=== PATIENT | female | born 1955 | race Caucasian/White ===

== ENCOUNTER 2018-01-09 05:51 | Day surgery (SDC) | payer OTHER, SELFPAY ==
[2018-01-01 15:37] VITALS: BP 140/64; PULSE 74; RESP 17; TEMP 36.4; O2SAT 97; BMI 39.9
[2018-01-01 17:16] LABS: Hemoglobin 10.5 g/dl (12.0-15.0); Mean Corp Hgb Conc 31.8 g/gl (32-36); Mean Corpuscular Hgb 26.6 pg (27.0-32.0); Mean Corpuscular Volume 83.8 fL (81-99); Mean Platelet Vol. 9.1 fl (6.2-12.0); Platelet Count 280 K/mm3 (150-450); RBC Distribution Width CV 16.6 % (11.6-14.6); RBC Distribution Width SD 50.9 fl (35.1-43.9); Red Blood Count 3.94 M/mm3 (4.2-5.4); White Blood Count 6.4 K/mm3 (4.4-11.0)
[2018-01-01 17:18] LABS: Scan Indicated on CBC? Y/N NO
[2018-01-01 18:08] LABS: Anion Gap 7 (5-15); BUN 30 mg/dL (7-18); BUN/Creat Ratio 25.9 RATIO (10-20); Calcium,Total 9.5 mg/dL (8.5-10.1); Chloride 104 mmol/L (98-107); Creatinine, Serum 1.16 mg/dL (0.55-1.02); EST Glomerular Filtration Rate 51 mL/min (>60); Est Glom Filt Rate - Afr Amer 61 mL/min (>60); Estimated Creatinine Clearance 43.98 ml/min; Glucose 109 mg/dL (74-106); Potassium 3.9 mmol/L (3.5-5.1); Sodium Level 140 mmol/L (136-145)
[2018-01-09] VITALS (7 sets, daily range): BP systolic 115–137; BP diastolic 55–65; PULSE 66–72; RESP 12–18; TEMP 36.1–36.5; O2SAT 91–98; BMI 39.9
--- NOTE | 2018-01-09 | MASS_PTH ---
PATIENT: TIFFANY DELONG LOC: [facility] [place] U#:[id number] AGE/SX: 62/F ROOM: RE01/09/[address]: Dr. Jared Marrero MD : [id number] BED: DIS: 01/09/2018 SPEC #: [id number] RECD: 01/09/18 08:15 STATUS: MILTON MADSEN #: [id number] ARABELLA: 01/09/18 00:[address]: Jared Marrero DEPT: SURGICAL PATHOLOGY RECD BY: Digna Polanco ENTERED: 01/09/18 10:21 SP TYPE: Mass OTHR DR: Out of Town Doctor Tissues: Nasal septum, NOS Procedures: Frozen Section (charge) Surgery Specimen Level IV Frozen (no charge) HEADER OPERATION: Septoplasty, resection inferior turbinates PRE-OP DIAGNOSIS: Deviated nasal septum, hypertrophy of nasal turbinates TISSUE SUBMITTED: Nasal septum mass sent at 0811 for frozen section FROZEN SECTION DIAGNOSIS Mass, nasal septum, biopsy: Negative for malignancy. Granulation tissue and fibrous tissue. ARCHANA:freya 01/09/18 MICROSCOPIC DIAGNOSIS Mass nasal septum, biopsy: A piece of fibroconnective tissue with granulation tissue reaction and fibrinous exudation. Negative for malignancy. ARCHANA:freya 01/10/18 COMMENT Clinical correlation and appropriate follow up are necessary. MICROSCOPIC DESCRIPTION Slides are reviewed. GROSS DESCRIPTION Received fresh for frozen section diagnosis labeled with the patient's name is a specimen designated mass nasal septum. The specimen consists of a piece of malone soft tissue measuring 0.4 x 0.3 x 0.2 cm. The entire specimen is submitted in for frozen section diagnosis one cassette. / ARCHANA:rg 01/09/18 TC:5 CPT: 26706, 81710
[2018-01-09 06:35] LABS: Bedside Glucose 149 mg/dL (70-110)
[2018-01-09] MEDS: Oxymetazoline 0.05% 1 SPRAY SPRAY.BTL 15 SPRAY (08:15)
[2018-01-09 09:15] LABS: Bedside Glucose 127 mg/dL (70-110)
--- NOTE | 2018-01-09 09:32 | PCM.OP.BLANK ---
Operative Report Operative note on Miguel Valenzuela Operative procedure septoplasty, partial resection of posterior and of inferior turbinate, biopsy with frozen section of the left anterior septal mucosa Preoperative diagnosis severe nasal obstruction, deviated nasal septum, hypertrophy of the inferior turbinates, polypoid changes in the left anterior septal mucosa. Postoperative diagnosis as above Operative procedure septoplasty, partial resection of posterior and of inferior turbinate, biopsy of left anterior septal mucosa with frozen section. Procedure the patient was placed supine on the operating room table and after satisfactory endotracheal general anesthesia had been obtained sterile drapes were applied and the patient draped in the usual sterile manner 1% Xylocaine plain mixed with epinephrine was infiltrated into the mucoperichondrium of the quadrilateral cartilage and the mucoperiosteum of the perpendicular plate of the ethmoid bone. Polypoid changes were noted in the mucosa covering the left anterior septum. A biopsy was obtained and sent for frozen section. A diagnosis of chronic inflammation was returned by the pathologist A left Bud incision was made and the mucoperichondrium elevated from the quadrilateral cartilage and the mucoperiosteum from the perpendicular plate of the ethmoid bone. The ethmoid bone appeared to be dislocated. Was repositioned in the midline. The quadrilateral cartilage was detached from the ethmoid bone and also repositioned in the midline. FloSeal was painted on the medial surface of the mucoperichondrium and the mucoperichondrial replaced. With the 0 degree endoscope and a microdebrider the polypoid changes of the left anterior septum was trimmed. Ponce splint was placed on each side of the nasal septum and anchored to each other with a single suture of 3-0 silk. The procedure was considered terminated and the patient returned to the recovery room in satisfactory condition. Jared Marrero MD
== END 2018-01-09 11:45 | disposition home or self-care (01) ==
LOC: SDC 05:52 → AC 05:53
PROVIDERS: Anesthesiology; Referring Provider Otolaryngology Otolaryngology/Facial Plastic Surgery; Visit Provider Otolaryngology Otolaryngology/Facial Plastic Surgery
PROC: (CPT 30520; principal; 2018-01-09 07:15)
DX: J34.2 Deviated nasal septum (principal); J34.3 Hypertrophy of nasal turbinates; J34.89 Other specified disorders of nose and nasal sinuses; E11.9 Type 2 diabetes mellitus without complications; I10 Essential (primary) hypertension; G47.30 Sleep apnea, unspecified; F41.9 Anxiety disorder, unspecified; E07.9 Disorder of thyroid, unspecified; E78.00 Pure hypercholesterolemia, unspecified; I48.0 Paroxysmal atrial fibrillation; Z87.891 Personal history of nicotine dependence; Z87.442 Personal history of urinary calculi; Z79.4 Long term (current) use of insulin; Z79.899 Other long term (current) drug therapy
CPT/HCPCS: 00160; 30100; 30140; 30520; 36415; 80048; 82962; 85027; 88304; 88305; 88331; J7120; J2405

== ENCOUNTER 2018-12-21 15:00 | Outpatient (RCR) | payer OTHER, SELFPAY ==
[2018-12-19 10:19] VITALS: BP 125/65; PULSE 82; RESP 18; TEMP 36.3
--- NOTE | 2018-12-19 12:02 | HP.PCM_ITS ---
(1) Venous insufficiency of both lower extremities Status: Chronic Current Visit: Yes Code(s): I87.2 - Venous insufficiency (chronic) (peripheral) (2) Ulcer of left lower extremity with fat layer exposed Status: Chronic Current Visit: Yes Code(s): L97.922 - Non-pressure chronic ulcer of unspecified part of left lower leg with fat layer exposed (3) Ulcer of right lower extremity with fat layer exposed Status: Chronic Current Visit: Yes Code(s): L97.912 - Non-pressure chronic ulcer of unspecified part of right lower leg with fat layer exposed (4) Type 2 diabetes mellitus Status: Chronic Current Visit: Yes Code(s): E11.9 - Type 2 diabetes mellitus without complications (5) Atrial fibrillation Status: Chronic Current Visit: Yes Code(s): I48.91 - Unspecified atrial fibrillation History of Present Illness Date of Service: 12/19/18 Chief Complaint: Nonhealing bilateral lower extremity ulceration History of Wound: Ms. Valenzuela is a 63-year-old past medical history as documented above who presents today due to nonhealing bilateral lower extremity ulcers. Current ulcerations have been ongoing for 2 months. Patient states that it is typically preceded by significant lower extremity swelling, blistering and an ulceration. These have been recurrent over the years. Also reports a history of diabetes mellitus which per patient is well controlled. 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 She feels well otherwise and denies chills, fever, nausea or vomiting. No known history of kidney disease. Past Medical History Past Medical History: Chronic Problems Venous insufficiency of both lower extremities (Chronic) Ulcer of left lower extremity with fat layer exposed (Chronic) Ulcer of right lower extremity with fat layer exposed (Chronic) Type 2 diabetes mellitus (Chronic) Atrial fibrillation (Chronic) Allergies/Adverse Reactions: Allergies orange Allergy (Verified 01/01/18 15:17) Food Allergy codeine Adverse Reaction (Verified 01/01/18 15:17) Nausea/Vom/Diarrhea hydrocodone [From Vicodin] Adverse Reaction (Verified 01/01/18 15:17) Nausea/Vom/Diarrhea Home Medications: Ambulatory Orders Medication Instructions Recorded ALPRAZolam [Xanax] 2 mg PO BID 01/01/18 Atorvastatin Calcium [Lipitor] 20 mg PO QHS 01/01/18 Cyanocobalamin (Vitamin B-12) 500 mcg PO BID 01/01/18 [Vitamin B-12] Desvenlafaxine Succinate [Pristiq] 50 mg PO DAILY 01/01/18 Ergocalciferol [Vitamin D] 50,000 unit PO Q7D 01/01/18 Estradiol 1 mg PO DAILY 01/01/18 Fenofibrate [Tricor] 145 mg PO QHS 01/01/18 Fish Oil/Dha/Epa [Fish Oil 1,200 1 each PO BID 01/01/18 mg Fish Oil] Furosemide [Lasix] 20 mg PO DAILY 01/01/18 Glipizide 5 mg PO DINNER 01/01/18 Glipizide [Glucotrol] 10 mg PO BREAKFAST 01/01/18 Insulin Glargine,Hum.rec.anlog 100 unit SQ BREAKFAST 01/01/18 [Toujeo Solostar] Insulin Glargine,Hum.rec.anlog 110 unit SQ QHS 01/01/18 [Toujeo Solostar] Levothyroxine Sodium [Synthroid] 25 mcg PO MOTUWETHFRSA 01/01/18 Levothyroxine Sodium [Synthroid] 50 mcg PO HOLGUIN 01/01/18 Meloxicam [Mobic] 15 mg PO DAILY 01/01/18 Pramipexole Di-HCl [Pramipexole 1 mg PO QHS 01/01/18 Dihydrochloride] Pregabalin [Lyrica] 100 mg PO DAILY 01/01/18 Sitagliptin Phos/Metformin HCl 2 each PO DAILY 01/01/18 [Janumet 50-1,000 MG Tablet] Sotalol HCl [Betapace AF (Beta 80 mg PO BID 01/01/18 Eyal)] Tapentadol HCl [Nucynta] 50 mg PO Q8H PRN PRN 01/01/18 Triamterene 37.5MG/Hctz 25MG 1 cap PO DAILY 01/01/18 [Dyazide (G)] Smoking Status: Former smoker Review of Systems Constitutional: Denies: Anorexia, Chills, Fever Eyes: Denies: Blurred vision, Redness HEENT: Denies: Difficulty Swallowing Cardiovascular: Denies: Chest Pressure Respiratory: Denies: Hemoptysis Gastrointestinal: Denies: Abdominal Pain, Hematemesis, Vomiting Skin: Denies: Jaundice - Physical Exam Vital Signs Temp Pulse Resp BP 97.3 F L 82 18 125/65 H 12/19/18 10:19 12/19/18 10:19 12/19/18 10:19 12/19/18 10:19 General: Alert, Oriented x3, Cooperative, No apparent distress HEENT: Atraumatic, Normocephalic Oral: Moist Mucosa Neck: Supple Lungs: Normal air movement Cardiovascular: Regular rate Abdomen: Soft, Non Tender Extremities: No cyanosis Skin: Ulcer/ Wound Wound Measurements and Assessment WC - Nurse 1 - General Ulcer Measurement Start: 12/19/18 10:08 Freq: Status: Active Protocol: Activity Type Activity Date Activity User E-Sign Co-Sign Detail Recorded Client Recorded Date Recorded By Document 12/19/18 10:19 RB [id number] 12/19/18 10:23 RB 12/19/18 10:19 Wound Center Nurse 1 [Ulcer Assessment] 2. RLE aponte cluster -Combined with other wound No -Current Size (cm) - Length 8 -Current Size (cm) - Width 11 -Current Size (cm) - Depth 0.1 -Total Square Cm 88 -Photo Taken Yes -Tunneling No -Undermining/Tunneling No -Circular Undermining No -Exudate Amt Medium -Exudate Type Serosanguineous -Wound Margin Distinct, Outline Attached -Granulation Amt Medium (34-66%) -Granulation Quality [place] -Slough/Fibrin Yes -Necrosis Amt Small (1-33%) -Necrotic Tissue Type Adherent Slough -Structure Exposed N/A -Texture (Yumiko-wound Skin Appearance) Assessed -Moisture (Yumiko-wound Skin Appearance Assessed, ) Weeping -Color (Yumiko-wound Skin Appearance) Assessed -Temperature (Yumiko-wound Skin No Abnormality Appearance) (Pt Warm) -Tenderness on Palpation (Yumiko-wound No Skin Appearance) -Ulcer Cleansing Wound Cleanser -Foul Odor after Cleansing No -Anesthetic Used 5% Lidocaine Gel 1.LLE cluster -Combined with other wound No -Current Size (cm) - Length 1.8 -Current Size (cm) - Width 1.5 -Current Size (cm) - Depth 0.1 -Total Square Cm 2.70 -Photo Taken Yes -Tunneling No -Undermining/Tunneling No -Circular Undermining No -Exudate Amt Medium -Exudate Type Serosanguineous -Wound Margin Distinct, Outline Attached -Granulation Amt Medium (34-66%) -Granulation Quality [place] -Slough/Fibrin Yes -Necrosis Amt Small (1-33%) -Necrotic Tissue Type Adherent Slough -Structure Exposed N/A -Texture (Yumiko-wound Skin Appearance) Assessed -Moisture (Yumiko-wound Skin Appearance Assessed, ) Weeping -Color (Yumiko-wound Skin Appearance) Assessed -Temperature (Yumiko-wound Skin No Abnormality Appearance) (Pt Warm) -Tenderness on Palpation (Yumiko-wound No Skin Appearance) -Ulcer Cleansing Rinsed/ Irrigated with Saline -Foul Odor after Cleansing No -Anesthetic Used 4% Lidocaine Solution [Edema Assessment] -Lower Limb Edema Present Yes -Right Calf (cm) 44.4 -Right Ankle (cm) 28.5 -Left Calf (cm) 44 -Left Ankle (cm) 29.5 WC - Nurse 2 - General Ulcer CM Notes Start: 12/19/18 10:08 Freq: Status: Active Protocol: Activity Type Activity Date Activity User E-Sign Co-Sign Detail Recorded Client Recorded Date Recorded By Document 12/19/18 10:35 MW [id number] 12/19/18 10:42 MW 12/19/18 10:35 Wound Center Nurse 2 [Procedure/Treatment] #3 right medial ankle -Time 10:38 -Correct Patient Yes -Correct Side, Site, Position Yes -Correct Procedure Yes -Procedure Performed Yes -Type of Procedure Debridement -Clinical Debridement Subcutaneous -Post Debridement Size (cm) - Length 1.5 -Post Debridement Size (cm) - Width 1.0 -Post Debridement Size (cm) - Depth 0.1 -Total Square Cm 1.50 -Wound/Ulcer Outcome Not Healed -Ulcer Cleansing Rinsed/ Irrigated with Saline -Foul Odor after Cleansing No -Bioengineered Tissue No -Bleeding Controlled with Pressure -Offloading No -Treatment Response Procedure Tolerated Well 2. RLE aponte cluster -Time 10:39 -Correct Patient Yes -Correct Side, Site, Position Yes -Correct Procedure Yes -Procedure Performed Yes -Type of Procedure Debridement -Clinical Debridement Subcutaneous -Post Debridement Size (cm) - Length 6.0 -Post Debridement Size (cm) - Width 6.5 -Post Debridement Size (cm) - Depth 0.1 -Total Square Cm 39.00 -Wound/Ulcer Outcome Not Healed -Ulcer Cleansing Rinsed/ Irrigated with Saline -Foul Odor after Cleansing No -Bioengineered Tissue No -Bleeding Controlled with Pressure -Offloading No -Treatment Response Procedure Tolerated Well 1.LLE cluster -Time 10:42 -Correct Patient Yes -Correct Side, Site, Position Yes -Correct Procedure Yes -Procedure Performed Yes -Type of Procedure Debridement -Clinical Debridement Subcutaneous -Post Debridement Size (cm) - Length 2.0 -Post Debridement Size (cm) - Width 2.5 -Post Debridement Size (cm) - Depth 0.1 -Total Square Cm 5.00 -Wound/Ulcer Outcome Not Healed -Ulcer Cleansing Rinsed/ Irrigated with Saline -Foul Odor after Cleansing No -Bioengineered Tissue No -Bleeding Controlled with Pressure -Offloading No -Treatment Response Procedure Tolerated Well [See Physician Procedure note for Specifics] Pain Scale: 0-10 Numeric [Pain] -Is Patient Pain Free? Yes Musculoskeletal: No Muscle Wasting Neurological: Cranial nerves II-XII grossly intact Psych/Mental Status: Normal Affect Debridement Note Post-Debridement Measurements/Treatment WC - Nurse 2 - General Ulcer CM Notes Start: 12/19/18 10:08 Freq: Status: Active Protocol: Activity Type Activity Date Activity User E-Sign Co-Sign Detail Recorded Client Recorded Date Recorded By Document 12/19/18 10:35 MW [id number] 12/19/18 10:42 MW 12/19/18 10:35 Wound Center Nurse 2 #3 right medial ankle -Time 10:38 -Correct Patient Yes -Correct Side, Site, Position Yes -Correct Procedure Yes -Procedure Performed Yes -Type of Procedure Debridement -Clinical Debridement Subcutaneous -Post Debridement Size (cm) - Length 1.5 -Post Debridement Size (cm) - Width 1.0 -Post Debridement Size (cm) - Depth 0.1 -Total Square Cm 1.50 -Wound/Ulcer Outcome Not Healed -Ulcer Cleansing Rinsed/ Irrigated with Saline -Foul Odor after Cleansing No -Bioengineered Tissue No -Bleeding Controlled with Pressure -Offloading No -Treatment Response Procedure Tolerated Well 2. RLE aponte cluster -Time 10:39 -Correct Patient Yes -Correct Side, Site, Position Yes -Correct Procedure Yes -Procedure Performed Yes -Type of Procedure Debridement -Clinical Debridement Subcutaneous -Post Debridement Size (cm) - Length 6.0 -Post Debridement Size (cm) - Width 6.5 -Post Debridement Size (cm) - Depth 0.1 -Total Square Cm 39.00 -Wound/Ulcer Outcome Not Healed -Ulcer Cleansing Rinsed/ Irrigated with Saline -Foul Odor after Cleansing No -Bioengineered Tissue No -Bleeding Controlled with Pressure -Offloading No -Treatment Response Procedure Tolerated Well 1.LLE cluster -Time 10:42 -Correct Patient Yes -Correct Side, Site, Position Yes -Correct Procedure Yes -Procedure Performed Yes -Type of Procedure Debridement -Clinical Debridement Subcutaneous -Post Debridement Size (cm) - Length 2.0 -Post Debridement Size (cm) - Width 2.5 -Post Debridement Size (cm) - Depth 0.1 -Total Square Cm 5.00 -Wound/Ulcer Outcome Not Healed -Ulcer Cleansing Rinsed/ Irrigated with Saline -Foul Odor after Cleansing No -Bioengineered Tissue No -Bleeding Controlled with Pressure -Offloading No -Treatment Response Procedure Tolerated Well Pain Scale: 0-10 Numeric Is Patient Pain Free? Yes Wound debrided: Right lower extremity (lateral cluster) Type of Debridement: Excisional debridement Anesthesia Used: 4% Lidocaine Solution Depth: Down to and including healthy tissue, in the subcutaneous layer Percentage of wound debrided: 100 Instrument Used: 3mm curette Tissue Removed: Slough and devitalized tissue Severity: Fat Layer Exposed Amount of bleeding with debridement: Mild Bleeding Controlled with: Pressure Patient tolerated procedure well - Additional Wound Wound debrided: Right medial ankle Type of Debridement: Excisional debridement Anesthesia Used: 4% Lidocaine Solution Depth: Down to and including healthy tissue, in the subcutaneous layer Percentage of wound debrided: 100 Instrument Used: 3mm curette Tissue Removed: Slough and devitalized tissue Severity: Fat Layer Exposed Amount of bleeding with debridement: Mild Bleeding Controlled with: Pressure Patient tolerated procedure: Patient tolerated procedure well - Additional Wound Wound debrided: Left aponte cluster Type of Debridement: Excisional debridement Anesthesia Used: 4% Lidocaine Solution Depth: Down to and including healthy tissue, in the subcutaneous layer Percentage of wound debrided: 100 Instrument Used: 3mm curette Tissue Removed: Slough and devitalized tissue Severity: Fat Layer Exposed Amount of bleeding with debridement: Mild Bleeding Controlled with: Pressure Patient tolerated procedure: Patient tolerated procedure well Assessment/Plan Active Problems Venous insufficiency of both lower extremities (Chronic) Ulcer of left lower extremity with fat layer exposed (Chronic) Ulcer of right lower extremity with fat layer exposed (Chronic) Type 2 diabetes mellitus (Chronic) Atrial fibrillation (Chronic) Assessment: Chronic bilateral lower extremity ulcerations secondary to venous insufficiency. Plan: Debridement done as documented above, procedure was well-tolerated. Nonhealing bilateral lower extremity ulcers likely secondary to venous insufficiency. Aquacel extra with gauze over top. Bilateral 3M wraps for edema management. Follow-up on Monday for nurse visit/change. Elevate lower extremities when seated and in bed. Optimal diabetes control encouraged. Increase protein intake. Exercise and weight loss also recommended. CircAid's for long-term edema management. Poorly tolerant of compression stockings. Her questions were answered and she was advised to call with any further questions or concerns. Follow-up in a week. This note was generated with [employer] dictation software. It may contain incorrect words, spelling, and punctuation that were not noted in checking the note before signing.
[2018-12-21 15:15] VITALS: BP 132/65; PULSE 83; RESP 18; TEMP 36.3
== END 2018-12-24 23:59 ==
LOC: WC 15:00
PROVIDERS: Visit Provider Internal Medicine
DX: E11.622 Type 2 diabetes mellitus with other skin ulcer (principal); L97.822 Non-pressure chronic ulcer of other part of left lower leg with fat layer exposed; I87.2 Venous insufficiency (chronic) (peripheral); I48.2 Chronic atrial fibrillation; M79.89 Other specified soft tissue disorders; Z79.899 Other long term (current) drug therapy; Z79.4 Long term (current) use of insulin; Z87.891 Personal history of nicotine dependence; L97.312 Non-pressure chronic ulcer of right ankle with fat layer exposed; L97.812 Non-pressure chronic ulcer of other part of right lower leg with fat layer exposed
CPT/HCPCS: 11042; 11045; 29581; 99213; G0463

== ENCOUNTER 2019-01-03 10:30 | Outpatient (RCR) | payer OTHER, SELFPAY ==
[2018-01-09 06:18] VITALS: BMI 39.9
[2018-12-25 01:21] VITALS: BP 132/65; PULSE 83; RESP 18; TEMP 36.3
[2018-12-27 11:42] VITALS: BP 146/62; PULSE 81; RESP 20; TEMP 36.2; BMI 39.9
--- NOTE | 2018-12-27 13:00 | PCM.WC.PN ---
(1) Ulcer of left lower extremity with fat layer exposed Status: Chronic Current Visit: Yes Code(s): L97.922 - Non-pressure chronic ulcer of unspecified part of left lower leg with fat layer exposed (2) Ulcer of right lower extremity with fat layer exposed Status: Chronic Current Visit: Yes Code(s): L97.912 - Non-pressure chronic ulcer of unspecified part of right lower leg with fat layer exposed (3) Atrial fibrillation Status: Chronic Current Visit: Yes Code(s): I48.91 - Unspecified atrial fibrillation (4) Type 2 diabetes mellitus Status: Chronic Current Visit: Yes Code(s): E11.9 - Type 2 diabetes mellitus without complications (5) Venous insufficiency of both lower extremities Status: Chronic Current Visit: Yes Code(s): I87.2 - Venous insufficiency (chronic) (peripheral) Type of Wound Date of Service: 12/27/18 Chief Complaint: Nonhealing bilateral lower extremity ulceration History of Wound: Ms. Valenzuela is a 63-year-old past medical history as documented above who presents today due to nonhealing bilateral lower extremity ulcers. Current ulcerations have been ongoing for 2 months. Patient states that it is typically preceded by significant lower extremity swelling, blistering and an ulceration. These have been recurrent over the years. Also reports a history of diabetes mellitus which per patient is well controlled. 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 She feels well otherwise and denies chills, fever, nausea or vomiting. No known history of kidney disease. Progress of Wound: Improving. No new concerns. Tolerated 3M wraps well. - Physical Exam Vital Signs Temp Pulse Resp BP 97.2 F L 81 20 H 146/62 H 12/27/18 11:42 12/27/18 11:42 12/27/18 11:42 12/27/18 11:42 General: Alert, Oriented x3, Cooperative, No apparent distress HEENT: Atraumatic, Normocephalic Oral: Moist Mucosa Neck: Supple Lungs: Normal air movement Extremities: No cyanosis, Edema Skin: Ulcer/ Wound Wound Measurements and Assessment WC - Nurse 1 - General Ulcer Measurement Start: 12/27/18 11:42 Freq: Status: Active Protocol: Activity Type Activity Date Activity User E-Sign Co-Sign Detail Recorded Client Recorded Date Recorded By Document 12/27/18 11:42 DL [id number] 12/27/18 11:48 DL 12/27/18 11:42 Wound Center Nurse 1 [Ulcer Assessment] #3 right medial ankle -Current Size (cm) - Length 0 -Current Size (cm) - Width 0 -Current Size (cm) - Depth 0 -Total Square Cm 0 -Photo Taken Yes -Exudate Amt None Present -Wound Margin Flat & Intact -Granulation Amt Small (1-33%) -Granulation Quality [place] -Necrosis Amt None Present (0 %) -Structure Exposed N/A -Texture (Yumiko-wound Skin Appearance) Scarring -Moisture (Yumiko-wound Skin Appearance Dry/Scaly ) -Color (Yumiko-wound Skin Appearance) Hemosiderin Staining -Temperature (Yumiko-wound Skin No Abnormality Appearance) (Pt Warm) -Tenderness on Palpation (Yumiko-wound No Skin Appearance) -Ulcer Cleansing Rinsed/ Irrigated with Saline -Foul Odor after Cleansing No 2. RLE aponte cluster -Current Size (cm) - Length 0.1 -Current Size (cm) - Width 0.1 -Current Size (cm) - Depth 0.1 -Total Square Cm 0.01 -Photo Taken No -Exudate Amt None Present -Wound Margin Flat & Intact -Granulation Amt Large (67-100%) -Granulation Quality [place] -Necrosis Amt None Present (0 %) -Structure Exposed N/A -Texture (Yumiko-wound Skin Appearance) Scarring -Moisture (Yumiko-wound Skin Appearance Dry/Scaly ) -Color (Yumiko-wound Skin Appearance) Hemosiderin Staining -Temperature (Yumiko-wound Skin No Abnormality Appearance) (Pt Warm) -Tenderness on Palpation (Yumiko-wound No Skin Appearance) -Ulcer Cleansing Rinsed/ Irrigated with Saline -Foul Odor after Cleansing No -Anesthetic Used 5% Lidocaine Gel 1.LLE cluster -Current Size (cm) - Length 0.1 -Current Size (cm) - Width 0.1 -Current Size (cm) - Depth 0.1 -Total Square Cm 0.01 -Photo Taken No -Exudate Amt None Present -Wound Margin Flat & Intact -Granulation Amt Large (67-100%) -Granulation Quality [place] -Necrosis Amt None Present (0 %) -Structure Exposed N/A -Texture (Yumiko-wound Skin Appearance) Scarring -Moisture (Yumiko-wound Skin Appearance Dry/Scaly ) -Color (Yumiko-wound Skin Appearance) Hemosiderin Staining -Temperature (Yumiko-wound Skin No Abnormality Appearance) (Pt Warm) -Tenderness on Palpation (Yumiko-wound No Skin Appearance) -Ulcer Cleansing Rinsed/ Irrigated with Saline -Foul Odor after Cleansing No [Edema Assessment] -Right Calf (cm) 42 -Right Ankle (cm) 24.2 -Left Calf (cm) 42 -Left Ankle (cm) 25.1 WC - Nurse 2 - General Ulcer CM Notes Start: 12/27/18 11:42 Freq: Status: Active Protocol: Activity Type Activity Date Activity User E-Sign Co-Sign Detail Recorded Client Recorded Date Recorded By Document 12/27/18 12:09 MW [id number] 12/27/18 12:16 MW 12/27/18 12:09 Wound Center Nurse 2 [Procedure/Treatment] #3 right medial ankle -Time 12:11 -Correct Patient Yes -Correct Side, Site, Position Yes -Correct Procedure Yes -Procedure Performed No -Post Debridement Size (cm) - Length 0 -Post Debridement Size (cm) - Width 0 -Post Debridement Size (cm) - Depth 0 -Total Square Cm 0 -Wound/Ulcer Outcome Healed- Epithelialized 2. RLE aponte cluster -Time 12:12 -Correct Patient Yes -Correct Side, Site, Position Yes -Correct Procedure Yes -Procedure Performed Yes -Type of Procedure Debridement -Clinical Debridement Subcutaneous -Post Debridement Size (cm) - Length 1.5 -Post Debridement Size (cm) - Width 5.0 -Post Debridement Size (cm) - Depth 0.1 -Total Square Cm 7.50 -Wound/Ulcer Outcome Not Healed -Ulcer Cleansing Rinsed/ Irrigated with Saline -Foul Odor after Cleansing No -Bioengineered Tissue No -Bleeding Controlled with Pressure -Offloading No -Treatment Response Procedure Tolerated Well 1.LLE cluster -Time 12:13 -Correct Patient Yes -Correct Side, Site, Position Yes -Correct Procedure Yes -Procedure Performed Yes -Type of Procedure Debridement -Clinical Debridement Subcutaneous -Post Debridement Size (cm) - Length 1.1 -Post Debridement Size (cm) - Width 1.0 -Post Debridement Size (cm) - Depth 0.1 -Total Square Cm 1.10 -Wound/Ulcer Outcome Not Healed -Ulcer Cleansing Rinsed/ Irrigated with Saline -Foul Odor after Cleansing No -Bioengineered Tissue No -Bleeding Controlled with Pressure -Offloading No -Treatment Response Procedure Tolerated Well [See Physician Procedure note for Specifics] Pain Scale: 0-10 Numeric [Pain] -Is Patient Pain Free? Yes Musculoskeletal: No Muscle Wasting Neurological: Cranial nerves II-XII grossly intact Psych/Mental Status: Normal Affect Debridement Note Post-Debridement Measurements/Treatment WC - Nurse 2 - General Ulcer CM Notes Start: 12/27/18 11:42 Freq: Status: Active Protocol: Activity Type Activity Date Activity User E-Sign Co-Sign Detail Recorded Client Recorded Date Recorded By Document 12/27/18 12:09 MW [id number] 12/27/18 12:16 MW 12/27/18 12:09 Wound Center Nurse 2 #3 right medial ankle -Time 12:11 -Correct Patient Yes -Correct Side, Site, Position Yes -Correct Procedure Yes -Procedure Performed No -Post Debridement Size (cm) - Length 0 -Post Debridement Size (cm) - Width 0 -Post Debridement Size (cm) - Depth 0 -Total Square Cm 0 -Wound/Ulcer Outcome Healed- Epithelialized 2. RLE aponte cluster -Time 12:12 -Correct Patient Yes -Correct Side, Site, Position Yes -Correct Procedure Yes -Procedure Performed Yes -Type of Procedure Debridement -Clinical Debridement Subcutaneous -Post Debridement Size (cm) - Length 1.5 -Post Debridement Size (cm) - Width 5.0 -Post Debridement Size (cm) - Depth 0.1 -Total Square Cm 7.50 -Wound/Ulcer Outcome Not Healed -Ulcer Cleansing Rinsed/ Irrigated with Saline -Foul Odor after Cleansing No -Bioengineered Tissue No -Bleeding Controlled with Pressure -Offloading No -Treatment Response Procedure Tolerated Well 1.LLE cluster -Time 12:13 -Correct Patient Yes -Correct Side, Site, Position Yes -Correct Procedure Yes -Procedure Performed Yes -Type of Procedure Debridement -Clinical Debridement Subcutaneous -Post Debridement Size (cm) - Length 1.1 -Post Debridement Size (cm) - Width 1.0 -Post Debridement Size (cm) - Depth 0.1 -Total Square Cm 1.10 -Wound/Ulcer Outcome Not Healed -Ulcer Cleansing Rinsed/ Irrigated with Saline -Foul Odor after Cleansing No -Bioengineered Tissue No -Bleeding Controlled with Pressure -Offloading No -Treatment Response Procedure Tolerated Well Pain Scale: 0-10 Numeric Is Patient Pain Free? Yes Wound debrided: Right loer extremity cluster Type of Debridement: Selective debridement Anesthesia Used: 4% Lidocaine Solution Depth: Down to and including healthy tissue Percentage of wound debrided: 100 Instrument Used: 3mm curette Tissue Removed: Slough and devitalized tissue Severity: Fat Layer Exposed Amount of bleeding with debridement: Mild Bleeding Controlled with: Pressure Patient tolerated procedure well - Additional Wound Wound debrided: Left Aponte Type of Debridement: Selective debridement Anesthesia Used: 4% Lidocaine Solution Depth: Down to and including healthy tissue Percentage of wound debrided: 100 Instrument Used: 3mm curette Tissue Removed: Slough and devitalized tissue Severity: Fat Layer Exposed Amount of bleeding with debridement: Mild Bleeding Controlled with: Pressure Patient tolerated procedure: Patient tolerated procedure well Assessment/Plan Active Problems Venous insufficiency of both lower extremities (Chronic) Ulcer of left lower extremity with fat layer exposed (Chronic) Ulcer of right lower extremity with fat layer exposed (Chronic) Type 2 diabetes mellitus (Chronic) Atrial fibrillation (Chronic) Assessment: Chronic bilateral lower extremity ulcerations secondary to venous insufficiency. Plan: Improving. No new concerns at this time. Continue Aquacel extra with gauze over top. Bilateral 3M wraps for edema management. Leave on for 1 week. Elevate lower extremities when seated and in bed. Optimal diabetes control encouraged. Increase protein intake. Exercise and weight loss also recommended. CircAid's for long-term edema management. Poorly tolerant of compression stockings. Her questions were answered and she was advised to call with any further questions or concerns. Follow-up in a week. This note was generated with [employer] dictation software. It may contain incorrect words, spelling, and punctuation that were not noted in checking the note before signing.
[2019-01-03 10:36] VITALS: BP 131/66; PULSE 79; RESP 22; TEMP 36.3; BMI 39.9
--- NOTE | 2019-01-03 11:13 | PN.PCM_ITS ---
(1) Ulcer of left lower extremity with fat layer exposed Status: Chronic Current Visit: Yes Code(s): L97.922 - Non-pressure chronic ulcer of unspecified part of left lower leg with fat layer exposed (2) Ulcer of right lower extremity with fat layer exposed Status: Chronic Current Visit: Yes Code(s): L97.912 - Non-pressure chronic ulcer of unspecified part of right lower leg with fat layer exposed (3) Atrial fibrillation Status: Chronic Current Visit: Yes Code(s): I48.91 - Unspecified atrial fibrillation (4) Type 2 diabetes mellitus Status: Chronic Current Visit: Yes Code(s): E11.9 - Type 2 diabetes mellitus without complications (5) Venous insufficiency of both lower extremities Status: Chronic Current Visit: Yes Code(s): I87.2 - Venous insufficiency (chronic) (peripheral) Type of Wound Date of Service: 01/03/19 Chief Complaint: Nonhealing bilateral lower extremity ulceration History of Wound: Ms. Valenzuela is a 63-year-old past medical history as documented above who presents today due to nonhealing bilateral lower extremity ulcers. Current ulcerations have been ongoing for 2 months. Patient states that it is typically preceded by significant lower extremity swelling, blistering and an ulceration. These have been recurrent over the years. Also reports a history of diabetes mellitus which per patient is well controlled. 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 She feels well otherwise and denies chills, fever, nausea or vomiting. No known history of kidney disease. Progress of Wound: Healed. No new concerns at this time. - Physical Exam Vital Signs Temp Pulse Resp BP 97.4 F L 79 22 H 131/66 H 01/03/19 10:36 01/03/19 10:36 01/03/19 10:36 01/03/19 10:36 General: Alert, Oriented x3, Cooperative, No apparent distress HEENT: Atraumatic, Normocephalic Oral: Moist Mucosa Neck: Supple Abdomen: Non Tender, Obese Extremities: No cyanosis, Edema Skin: Ulcer/ Wound Wound Measurements and Assessment WC - Nurse 1 - General Ulcer Measurement Start: 12/27/18 11:42 Freq: Status: Active Protocol: Activity Type Activity Date Activity User E-Sign Co-Sign Detail Recorded Client Recorded Date Recorded By Document 01/03/19 10:36 DL [id number] 01/03/19 10:52 DL 01/03/19 10:36 Wound Center Nurse 1 [Ulcer Assessment] 2. RLE aponte cluster -Current Size (cm) - Length 0.1 -Current Size (cm) - Width 0.1 -Current Size (cm) - Depth 0.1 -Total Square Cm 0.01 -Photo Taken No -Exudate Amt None Present -Wound Margin Flat & Intact -Granulation Amt Large (67-100%) -Granulation Quality [place] -Necrosis Amt None Present (0 %) -Structure Exposed N/A -Texture (Yumiko-wound Skin Appearance) Scarring -Moisture (Yumiko-wound Skin Appearance Dry/Scaly ) -Color (Yumiko-wound Skin Appearance) Hemosiderin Staining -Temperature (Yumiko-wound Skin No Abnormality Appearance) (Pt Warm) -Tenderness on Palpation (Yumiko-wound No Skin Appearance) -Ulcer Cleansing Wound Cleanser -Foul Odor after Cleansing No 1.LLE cluster -Current Size (cm) - Length 0 -Current Size (cm) - Width 0 -Current Size (cm) - Depth 0 -Total Square Cm 0 -Photo Taken Yes -Exudate Amt None Present -Wound Margin Flat & Intact -Granulation Amt Large (67-100%) -Granulation Quality [place] -Necrosis Amt None Present (0 %) -Structure Exposed N/A -Texture (Yumiko-wound Skin Appearance) Scarring -Moisture (Yumiko-wound Skin Appearance Dry/Scaly ) -Color (Yumiko-wound Skin Appearance) Hemosiderin Staining -Temperature (Yumiko-wound Skin No Abnormality Appearance) (Pt Warm) -Tenderness on Palpation (Yumiko-wound No Skin Appearance) -Ulcer Cleansing Wound Cleanser -Foul Odor after Cleansing No [Edema Assessment] -Right Calf (cm) 41.5 -Right Ankle (cm) 25.2 -Left Calf (cm) 42 -Left Ankle (cm) 25.8 WC - Nurse 2 - General Ulcer CM Notes Start: 12/27/18 11:42 Freq: Status: Active Protocol: Activity Type Activity Date Activity User E-Sign Co-Sign Detail Recorded Client Recorded Date Recorded By Document 01/03/19 10:55 MW [id number] 01/03/19 10:57 MW 01/03/19 10:55 Wound Center Nurse 2 [Procedure/Treatment] #3 right medial ankle -Time 10:56 -Correct Patient Yes -Correct Side, Site, Position Yes -Correct Procedure Yes -Procedure Performed No -Post Debridement Size (cm) - Length 0 -Post Debridement Size (cm) - Width 0 -Post Debridement Size (cm) - Depth 0 -Total Square Cm 0 -Wound/Ulcer Outcome Healed- Epithelialized 2. RLE aponte cluster -Time 10:56 -Correct Patient Yes -Correct Side, Site, Position Yes -Correct Procedure Yes -Procedure Performed No -Post Debridement Size (cm) - Length 0 -Post Debridement Size (cm) - Width 0 -Post Debridement Size (cm) - Depth 0 -Total Square Cm 0 -Wound/Ulcer Outcome Healed- Epithelialized 1.LLE cluster -Time 10:56 -Correct Patient Yes -Correct Side, Site, Position Yes -Correct Procedure Yes -Procedure Performed No -Post Debridement Size (cm) - Length 0 -Post Debridement Size (cm) - Width 0 -Post Debridement Size (cm) - Depth 0 -Total Square Cm 0 -Wound/Ulcer Outcome Healed- Epithelialized [See Physician Procedure note for Specifics] Musculoskeletal: No Muscle Wasting Neurological: Cranial nerves II-XII grossly intact Psych/Mental Status: Normal Affect Debridement Note Post-Debridement Measurements/Treatment WC - Nurse 2 - General Ulcer CM Notes Start: 12/27/18 11:42 Freq: Status: Active Protocol: Activity Type Activity Date Activity User E-Sign Co-Sign Detail Recorded Client Recorded Date Recorded By Document 12/27/18 12:09 MW [id number] 12/27/18 12:16 MW Document 01/03/19 10:55 MW [id number] 01/03/19 10:57 MW 12/27/18 01/03/19 12:09 10:55 Wound Center Nurse 2 #3 right medial ankle -Time 12:11 10:56 -Correct Patient Yes Yes -Correct Side, Site, Position Yes Yes -Correct Procedure Yes Yes -Procedure Performed No No -Post Debridement Size (cm) - Length 0 0 -Post Debridement Size (cm) - Width 0 0 -Post Debridement Size (cm) - Depth 0 0 -Total Square Cm 0 0 -Wound/Ulcer Outcome Healed- Healed- Epithelialized Epithelialized 2. RLAddi aponte cluster -Time 12:12 10:56 -Correct Patient Yes Yes -Correct Side, Site, Position Yes Yes -Correct Procedure Yes Yes -Procedure Performed Yes No -Type of Procedure Debridement -Clinical Debridement Subcutaneous -Post Debridement Size (cm) - Length 1.5 0 -Post Debridement Size (cm) - Width 5.0 0 -Post Debridement Size (cm) - Depth 0.1 0 -Total Square Cm 7.50 0 -Wound/Ulcer Outcome Not Healed Healed- Epithelialized -Ulcer Cleansing Rinsed/ Irrigated with Saline -Foul Odor after Cleansing No -Bioengineered Tissue No -Bleeding Controlled with Pressure -Offloading No -Treatment Response Procedure Tolerated Well 1.LLE cluster -Time 12:13 10:56 -Correct Patient Yes Yes -Correct Side, Site, Position Yes Yes -Correct Procedure Yes Yes -Procedure Performed Yes No -Type of Procedure Debridement -Clinical Debridement Subcutaneous -Post Debridement Size (cm) - Length 1.1 0 -Post Debridement Size (cm) - Width 1.0 0 -Post Debridement Size (cm) - Depth 0.1 0 -Total Square Cm 1.10 0 -Wound/Ulcer Outcome Not Healed Healed- Epithelialized -Ulcer Cleansing Rinsed/ Irrigated with Saline -Foul Odor after Cleansing No -Bioengineered Tissue No -Bleeding Controlled with Pressure -Offloading No -Treatment Response Procedure Tolerated Well Pain Scale: 0-10 Numeric Is Patient Pain Free? Yes No debridement was completed today Assessment/Plan Active Problems Venous insufficiency of both lower extremities (Chronic) Ulcer of left lower extremity with fat layer exposed (Chronic) Ulcer of right lower extremity with fat layer exposed (Chronic) Type 2 diabetes mellitus (Chronic) Atrial fibrillation (Chronic) Assessment: Chronic bilateral lower extremity ulcerations secondary to venous insufficiency. Plan: Healed. Adaptic daily x 2 weeks. Circaids for edema management.Compliance encouraged. Elevate lower extremities when seated and in bed. Optimal diabetes control encouraged. Exercise and weight loss also recommended. Follow up with PCP. Her questions were answered and she was advised to call with any further questions or concerns. Discharge from the wound clinic. This note was generated with [employer] software. It may contain incorrect words, spelling, and punctuation that were not noted in checking the note before signing.
== END 2019-01-24 23:59 ==
LOC: WC 10:30
PROVIDERS: Visit Provider Internal Medicine
DX: E11.622 Type 2 diabetes mellitus with other skin ulcer (principal); L97.812 Non-pressure chronic ulcer of other part of right lower leg with fat layer exposed; I48.20 Chronic atrial fibrillation, unspecified; I87.2 Venous insufficiency (chronic) (peripheral); L97.822 Non-pressure chronic ulcer of other part of left lower leg with fat layer exposed
CPT/HCPCS: 29581; 97597; 99213; G0463